=== PATIENT | female | born 1955 | race Caucasian/White ===

== ENCOUNTER 2023-03-06 11:29 | Emergency (ER) | payer OTHER, MEDICAID ==
[~2023-03-06] VITALS: Ht 170.2 cm; Wt 98.4 kg
[2023-03-06] MEDS ORDERED: HYDR-3713 PO (15:34)
[2023-03-06] MEDS ORDERED: NAPR-885 PO (15:34)
[2023-03-06 15:44] VITALS: BP 126/76; TEMP 97.1; O2SAT 98
== END 2023-03-06 15:45 | disposition home or self-care (01) ==
LOC: M ED 11:29
DX: M25.512 Pain in left shoulder (principal); G89.18 Other acute postprocedural pain; F41.9 Anxiety disorder, unspecified; Z79.899 Other long term (current) drug therapy